=== PATIENT | male | born 1955 ===

== ENCOUNTER 2018-09-07 15:38 | Inpatient (IN) ==
[2018-09-07 16:29] LABS: Basophils % 0.3 % (0.0-0.8); Eosinophils # 0.2 10*3/uL (0.0-0.87); Eosinophils % 2.2 % (0.00-10.9); Hematocrit 22.1 VOL% (42.0-52.0); Immature Granulocytes % 0.5 %; Immature Granulocytes Absolute 0.05 #; Lymphocytes # 1.5 10*3/uL (1.4-4.0); Lymphocytes % 14.7 % (21.2-54.2); Mean Corpuscular Volume 99.1 FL (87-102); Mean Platelet Volume 8.9 FL (9.6-12.0); Monocytes % 8.4 % (1.7-12.7); Neutrophils % 73.9 % (38.7-73.9); Platelet Count 175 T/CUMM (130-400); Red Blood Count 2.23 MC/CUMM (3.8-5.5); Red Cell Distribution Width 19.3 % (9.3-17.3); White Blood Count 10.1 T/CUMM (4-12)
[2018-09-07 16:34] LABS: Hemoglobin 6.4 GM/DL (14.0-18.0)
[2018-09-07 17:06] LABS: Microcytosis 1+; Polychromasia 1+
[2018-09-07 17:07] LABS: Platelet Estimate Adequate
[2018-09-07] MEDS ORDERED: ACETAMINOPHEN 325 MG TABLET PO PRN (18:51)
[2018-09-07] MEDS ORDERED: DEXTROSE 10% 250 ML BAG IV PRN (18:56)
[2018-09-07] MEDS ORDERED: GLUCAGON 1 MG VIAL IM PRN (18:56)
[2018-09-07 19:23] LABS: % Iron Saturation 43.9 % (18-50); INR 1.1; PT Patient Result 11.4 SECS
[2018-09-07 19:35] LABS: Ferritin 2042.9 ng/ml (26-388)
[2018-09-07] MEDS: INSULIN REGULAR 100 UNIT/ML SUBCUT SCH (23:04)
[2018-09-07] MEDS: ATORVASTATIN 40 MG TABLET PO SCH (23:04)
[2018-09-07] MEDS: CARVEDILOL 3.125 MG TABLET PO SCH (23:21)
[2018-09-07] MEDS ORDERED: SODIUM CHLORIDE 0.9% 1,000 ML IV PRN (23:41)
[2018-09-08 05:28] LABS: Basophils % 0.4 % (0.0-0.8); Eosinophils # 0.2 10*3/uL (0.0-0.87); Eosinophils % 1.9 % (0.00-10.9); Hematocrit 20.9 VOL% (42.0-52.0); Immature Granulocytes % 0.4 %; Immature Granulocytes Absolute 0.04 #; Lymphocytes # 1.9 10*3/uL (1.4-4.0); Lymphocytes % 20.6 % (21.2-54.2); Mean Corpuscular HGB Conc 30.1 GM/DL (32-36); Mean Corpuscular Volume 97.2 FL (87-102); Mean Platelet Volume 9.4 FL (9.6-12.0); Monocytes % 9.6 % (1.7-12.7); Neutrophils % 67.1 % (38.7-73.9); Platelet Count 192 T/CUMM (130-400); Red Blood Count 2.15 MC/CUMM (3.8-5.5); Red Cell Distribution Width 19.1 % (9.3-17.3)
[2018-09-08 05:36] LABS: Hemoglobin 6.3 GM/DL (14.0-18.0)
[2018-09-08 05:58] LABS: Albumin 1.8 G/DL (3.4-5.0); Bilirubin,Total 1.1 MG/DL (0.2-1.0); Calcium 9.1 MG/DL (8.5-10.1); Osmolality,Calculated 283.3 MOS/KG (273-304); Risk Ratio 3.21; Total Protein 6.8 G/DL (6.4-8.3); VLDL CHOLESTEROL 16.2 MG/DL
[2018-09-08] MEDS: INSULIN REGULAR 100 UNIT/ML SUBCUT SCH ×4 (08:51→21:46)
[2018-09-08] MEDS: LEVOTHYROXINE 112 MCG TABLET PO SCH (09:09)
[2018-09-08] MEDS: AMIODARONE 200 MG TABLET PO SCH (09:10)
[2018-09-08] MEDS: PANTOPRAZOLE 40 MG TABLET PO SCH (09:10)
[2018-09-08] MEDS: CARVEDILOL 3.125 MG TABLET PO SCH ×2 (09:10→17:57)
[2018-09-08] MEDS: MULTIVITAMIN (BEROCCA) TABLET PO SCH (09:10)
[2018-09-08] MEDS: FERROUS SULFATE 300 MG/5 ML UDCUP PO SCH (21:48)
[2018-09-08] MEDS: ATORVASTATIN 40 MG TABLET PO SCH (21:48)
[2018-09-09 05:42] LABS: Basophils % 0.5 % (0.0-0.8); Eosinophils # 0.1 10*3/uL (0.0-0.87); Eosinophils % 1.3 % (0.00-10.9); Hematocrit 27.5 VOL% (42.0-52.0); Hemoglobin 8.5 GM/DL (14.0-18.0); Immature Granulocytes % 0.5 %; Immature Granulocytes Absolute 0.04 #; Lymphocytes # 1.6 10*3/uL (1.4-4.0); Lymphocytes % 19.3 % (21.2-54.2); Mean Corpuscular HGB Conc 30.9 GM/DL (32-36); Mean Corpuscular Volume 95.5 FL (87-102); Mean Platelet Volume 9.4 FL (9.6-12.0); Monocytes % 9.5 % (1.7-12.7); Neutrophils % 68.9 % (38.7-73.9); Platelet Count 174 T/CUMM (130-400); Red Blood Count 2.88 MC/CUMM (3.8-5.5); Red Cell Distribution Width 18.2 % (9.3-17.3); White Blood Count 8.4 T/CUMM (4-12)
[2018-09-09 06:17] LABS: Calcium 8.7 MG/DL (8.5-10.1); Osmolality,Calculated 276.5 MOS/KG (273-304)
[2018-09-09] MEDS: INSULIN REGULAR 100 UNIT/ML SUBCUT SCH ×4 (07:27→20:23)
[2018-09-09] MEDS: AMIODARONE 200 MG TABLET PO SCH (09:30)
[2018-09-09] MEDS: LEVOTHYROXINE 112 MCG TABLET PO SCH (09:30)
[2018-09-09] MEDS: MULTIVITAMIN (BEROCCA) TABLET PO SCH (09:30)
[2018-09-09] MEDS: PANTOPRAZOLE 40 MG TABLET PO SCH (09:30)
[2018-09-09] MEDS: CARVEDILOL 3.125 MG TABLET PO SCH ×2 (09:30→17:01)
[2018-09-09] MEDS: FERROUS SULFATE 300 MG/5 ML UDCUP PO SCH ×2 (09:30→20:23)
[2018-09-09] MEDS: ATORVASTATIN 40 MG TABLET PO SCH (20:23)
[2018-09-10] MEDS: INSULIN REGULAR 100 UNIT/ML SUBCUT SCH ×4 (09:45→21:11)
[2018-09-10] MEDS ORDERED: PROPOFOL 200 MG/20 ML VIAL IV ONE (10:10)
[2018-09-10] MEDS ORDERED: LIDOCAINE 2% 5 ML VIAL ONE (10:10)
[2018-09-10] MEDS: CARVEDILOL 3.125 MG TABLET PO SCH ×2 (12:35→17:33)
[2018-09-10] MEDS: LEVOTHYROXINE 112 MCG TABLET PO SCH (12:39)
[2018-09-10] MEDS: AMIODARONE 200 MG TABLET PO SCH (12:51)
[2018-09-10] MEDS: PANTOPRAZOLE 40 MG TABLET PO SCH (12:52)
[2018-09-10] MEDS: ERGOCALCIFEROL 50,000 UNIT CAPSULE PO SCH (12:52)
[2018-09-10] MEDS: MULTIVITAMIN (BEROCCA) TABLET PO SCH (12:52)
[2018-09-10] MEDS: FERROUS SULFATE 300 MG/5 ML UDCUP PO SCH ×2 (12:52→21:10)
[2018-09-10] MEDS: ATORVASTATIN 40 MG TABLET PO SCH (21:10)
[2018-09-11 05:08] LABS: Basophils % 0.4 % (0.0-0.8); Eosinophils # 0.2 10*3/uL (0.0-0.87); Eosinophils % 2.1 % (0.00-10.9); Hematocrit 27.9 VOL% (42.0-52.0); Hemoglobin 8.7 GM/DL (14.0-18.0); Immature Granulocytes % 0.4 %; Immature Granulocytes Absolute 0.04 #; Lymphocytes # 1.6 10*3/uL (1.4-4.0); Lymphocytes % 16.6 % (21.2-54.2); Mean Corpuscular HGB Conc 31.2 GM/DL (32-36); Mean Corpuscular Volume 94.6 FL (87-102); Mean Platelet Volume 9.6 FL (9.6-12.0); Monocytes % 7.4 % (1.7-12.7); Neutrophils % 73.1 % (38.7-73.9); Platelet Count 164 T/CUMM (130-400); Red Blood Count 2.95 MC/CUMM (3.8-5.5); Red Cell Distribution Width 17.4 % (9.3-17.3); White Blood Count 9.4 T/CUMM (4-12)
[2018-09-11 05:28] LABS: Calcium 9.2 MG/DL (8.5-10.1); Osmolality,Calculated 282.5 MOS/KG (273-304)
[2018-09-11] MEDS ORDERED: EPOETIN ALFA 10,000 UNIT/1 ML VIAL IV PRN (07:37)
[2018-09-11] MEDS: INSULIN REGULAR 100 UNIT/ML SUBCUT SCH ×4 (08:26→21:44)
[2018-09-11] MEDS: AMIODARONE 200 MG TABLET PO SCH (13:27)
[2018-09-11] MEDS: CARVEDILOL 3.125 MG TABLET PO SCH ×2 (13:28→18:14)
[2018-09-11] MEDS: LEVOTHYROXINE 112 MCG TABLET PO SCH (13:38)
[2018-09-11] MEDS: PANTOPRAZOLE 40 MG TABLET PO SCH (14:01)
[2018-09-11] MEDS: MULTIVITAMIN (BEROCCA) TABLET PO SCH (14:01)
[2018-09-11] MEDS: FERROUS SULFATE 300 MG/5 ML UDCUP PO SCH ×2 (14:01→21:44)
[2018-09-11] MEDS: ATORVASTATIN 40 MG TABLET PO SCH (21:44)
[2018-09-12] MEDS: AMIODARONE 200 MG TABLET PO SCH (08:57)
[2018-09-12] MEDS: INSULIN REGULAR 100 UNIT/ML SUBCUT SCH ×4 (08:57→22:00)
[2018-09-12] MEDS: LEVOTHYROXINE 112 MCG TABLET PO SCH (08:57)
[2018-09-12] MEDS: PANTOPRAZOLE 40 MG TABLET PO SCH (08:58)
[2018-09-12] MEDS: FERROUS SULFATE 300 MG/5 ML UDCUP PO SCH ×2 (08:58→22:00)
[2018-09-12] MEDS: CARVEDILOL 3.125 MG TABLET PO SCH ×2 (08:58→16:44)
[2018-09-12] MEDS: MULTIVITAMIN (BEROCCA) TABLET PO SCH (08:58)
[2018-09-12] MEDS ORDERED: BISACODYL 5 MG TABLET PO ONE (12:00)
[2018-09-12] MEDS ORDERED: POLYETHYLENE GLYCOL POWDER 255 GM BOTTLE PO ONE (12:22)
[2018-09-12] MEDS: ZINC OXIDE 16% PASTE 57 GM TUBE TOP SCH ×2 (12:56→22:00)
[2018-09-12] MEDS: ATORVASTATIN 40 MG TABLET PO SCH (22:00)
[2018-09-13 04:55] LABS: INR 1.1; PT Patient Result 11.4 SECS
[2018-09-13] MEDS: INSULIN REGULAR 100 UNIT/ML SUBCUT SCH ×4 (07:30→21:12)
[2018-09-13 07:56] LABS: Calcium 8.8 MG/DL (8.5-10.1); Osmolality,Calculated 277.7 MOS/KG (273-304)
[2018-09-13] MEDS ORDERED: SODIUM CHLORIDE 0.9% 250 ML IV SCH (08:00)
[2018-09-13 08:36] LABS: Basophils % 0.4 % (0.0-0.8); Eosinophils # 0.2 10*3/uL (0.0-0.87); Eosinophils % 2.4 % (0.00-10.9); Hemoglobin 9.6 GM/DL (14.0-18.0); Immature Granulocytes % 0.4 %; Immature Granulocytes Absolute 0.04 #; Lymphocytes # 1.7 10*3/uL (1.4-4.0); Lymphocytes % 19.4 % (21.2-54.2); Mean Corpuscular Volume 96.4 FL (87-102); Mean Platelet Volume 9.1 FL (9.6-12.0); Monocytes % 7.8 % (1.7-12.7); Neutrophils % 69.6 % (38.7-73.9); Platelet Count 158 T/CUMM (130-400); Red Blood Count 3.32 MC/CUMM (3.8-5.5); Red Cell Distribution Width 17.2 % (9.3-17.3); White Blood Count 8.9 T/CUMM (4-12)
[2018-09-13] MEDS: AMIODARONE 200 MG TABLET PO SCH (08:42)
[2018-09-13] MEDS: CARVEDILOL 3.125 MG TABLET PO SCH ×2 (08:42→17:08)
[2018-09-13] MEDS: PANTOPRAZOLE 40 MG TABLET PO SCH (08:42)
[2018-09-13] MEDS: LEVOTHYROXINE 112 MCG TABLET PO SCH (08:42)
[2018-09-13] MEDS: FERROUS SULFATE 300 MG/5 ML UDCUP PO SCH ×2 (08:42→21:12)
[2018-09-13] MEDS: MULTIVITAMIN (BEROCCA) TABLET PO SCH (08:42)
[2018-09-13] MEDS: ZINC OXIDE 16% PASTE 57 GM TUBE TOP SCH ×2 (08:43→21:12)
[2018-09-13] MEDS ORDERED: POLYETHYLENE GLYCOL POWDER 255 GM BOTTLE PO ONE (10:02)
[2018-09-13] MEDS: ATORVASTATIN 40 MG TABLET PO SCH (21:12)
[2018-09-14] MEDS ORDERED: LIDOCAINE 2% 5 ML VIAL ONE (09:00)
[2018-09-14] MEDS ORDERED: ETOMIDATE 20 MG/10 ML VIAL IV ONE (09:00)
[2018-09-14] MEDS ORDERED: PROPOFOL 200 MG/20 ML VIAL IV ONE (09:00)
[2018-09-14] MEDS: LEVOTHYROXINE 112 MCG TABLET PO SCH (13:11)
[2018-09-14] MEDS: CARVEDILOL 3.125 MG TABLET PO SCH ×2 (13:11→17:06)
[2018-09-14] MEDS: MULTIVITAMIN (BEROCCA) TABLET PO SCH (13:11)
[2018-09-14] MEDS: PANTOPRAZOLE 40 MG TABLET PO SCH (13:11)
[2018-09-14] MEDS: FERROUS SULFATE 300 MG/5 ML UDCUP PO SCH ×2 (13:11→20:31)
[2018-09-14] MEDS: AMIODARONE 200 MG TABLET PO SCH (13:11)
[2018-09-14] MEDS: LACTATED RINGERS 1,000 ML IV SCH (13:12)
[2018-09-14] MEDS: ZINC OXIDE 16% PASTE 57 GM TUBE TOP SCH ×2 (13:12→20:34)
[2018-09-14] MEDS: INSULIN REGULAR 100 UNIT/ML SUBCUT SCH ×3 (13:12→20:31)
[2018-09-14] MEDS: ATORVASTATIN 40 MG TABLET PO SCH (20:31)
[2018-09-15] MEDS: LEVOTHYROXINE 112 MCG TABLET PO SCH ×2 (06:00→07:15)
[2018-09-15 06:34] LABS: Basophils # 0.1 10*3/uL (0.0-0.2); Basophils % 0.6 % (0.0-0.8); Eosinophils # 0.1 10*3/uL (0.0-0.87); Eosinophils % 1.1 % (0.00-10.9); Hematocrit 31.7 VOL% (42.0-52.0); Hemoglobin 9.5 GM/DL (14.0-18.0); Immature Granulocytes % 0.2 %; Immature Granulocytes Absolute 0.02 #; Lymphocytes # 1.7 10*3/uL (1.4-4.0); Lymphocytes % 20.6 % (21.2-54.2); Mean Corpuscular Volume 96.4 FL (87-102); Mean Platelet Volume 8.9 FL (9.6-12.0); Monocytes % 8.4 % (1.7-12.7); Neutrophils % 69.1 % (38.7-73.9); Platelet Count 176 T/CUMM (130-400); Red Blood Count 3.29 MC/CUMM (3.8-5.5); Red Cell Distribution Width 17.2 % (9.3-17.3); White Blood Count 8.1 T/CUMM (4-12)
[2018-09-15 07:02] LABS: Calcium 9.3 MG/DL (8.5-10.1); Osmolality,Calculated 281.3 MOS/KG (273-304)
[2018-09-15] MEDS: LACTATED RINGERS 1,000 ML IV SCH (07:15)
[2018-09-15] MEDS: MULTIVITAMIN (BEROCCA) TABLET PO SCH ×2 (08:00→13:23)
[2018-09-15] MEDS: AMIODARONE 200 MG TABLET PO SCH ×2 (08:00→13:23)
[2018-09-15] MEDS: INSULIN REGULAR 100 UNIT/ML SUBCUT SCH ×4 (08:16→20:26)
[2018-09-15] MEDS: ZINC OXIDE 16% PASTE 57 GM TUBE TOP SCH ×3 (10:08→20:26)
[2018-09-15] MEDS: PANTOPRAZOLE 40 MG TABLET PO SCH ×2 (10:11→13:24)
[2018-09-15] MEDS: CARVEDILOL 3.125 MG TABLET PO SCH ×2 (13:20→17:41)
[2018-09-15] MEDS: FERROUS SULFATE 300 MG/5 ML UDCUP PO SCH ×3 (13:23→20:26)
[2018-09-15] MEDS: ATORVASTATIN 40 MG TABLET PO SCH (20:26)
[2018-09-16] MEDS: LEVOTHYROXINE 112 MCG TABLET PO SCH (07:30)
[2018-09-16] MEDS: INSULIN REGULAR 100 UNIT/ML SUBCUT SCH ×4 (07:30→21:54)
[2018-09-16] MEDS: CARVEDILOL 3.125 MG TABLET PO SCH ×2 (10:00→16:45)
[2018-09-16] MEDS: ZINC OXIDE 16% PASTE 57 GM TUBE TOP SCH ×2 (10:00→21:54)
[2018-09-16] MEDS: PANTOPRAZOLE 40 MG TABLET PO SCH (10:00)
[2018-09-16] MEDS: MULTIVITAMIN (BEROCCA) TABLET PO SCH (10:00)
[2018-09-16] MEDS: AMIODARONE 200 MG TABLET PO SCH (10:00)
[2018-09-16] MEDS: FERROUS SULFATE 300 MG/5 ML UDCUP PO SCH ×2 (10:00→21:49)
[2018-09-16] MEDS: LACTATED RINGERS 1,000 ML IV SCH (12:36)
[2018-09-16] MEDS: ATORVASTATIN 40 MG TABLET PO SCH (21:49)
[2018-09-17 05:19] LABS: Basophils % 0.4 % (0.0-0.8); Eosinophils # 0.2 10*3/uL (0.0-0.87); Eosinophils % 1.6 % (0.00-10.9); Hematocrit 29.7 VOL% (42.0-52.0); Hemoglobin 9.2 GM/DL (14.0-18.0); Immature Granulocytes % 0.2 %; Immature Granulocytes Absolute 0.02 #; Lymphocytes # 2.4 10*3/uL (1.4-4.0); Lymphocytes % 25.6 % (21.2-54.2); Mean Corpuscular Volume 95.5 FL (87-102); Mean Platelet Volume 9.7 FL (9.6-12.0); Monocytes % 8.4 % (1.7-12.7); Neutrophils % 63.8 % (38.7-73.9); Platelet Count 150 T/CUMM (130-400); Red Blood Count 3.11 MC/CUMM (3.8-5.5); Red Cell Distribution Width 17.2 % (9.3-17.3); White Blood Count 9.4 T/CUMM (4-12)
[2018-09-17 05:42] LABS: Calcium 9.2 MG/DL (8.5-10.1); Osmolality,Calculated 279.7 MOS/KG (273-304)
[2018-09-17] MEDS: INSULIN REGULAR 100 UNIT/ML SUBCUT SCH ×2 (08:08→13:59)
[2018-09-17] MEDS: FERROUS SULFATE 300 MG/5 ML UDCUP PO SCH (09:05)
[2018-09-17] MEDS: LEVOTHYROXINE 112 MCG TABLET PO SCH (09:05)
[2018-09-17] MEDS: AMIODARONE 200 MG TABLET PO SCH (09:06)
[2018-09-17] MEDS: MULTIVITAMIN (BEROCCA) TABLET PO SCH (09:06)
[2018-09-17] MEDS: ERGOCALCIFEROL 50,000 UNIT CAPSULE PO SCH (09:06)
[2018-09-17] MEDS: PANTOPRAZOLE 40 MG TABLET PO SCH (09:06)
[2018-09-17] MEDS: ZINC OXIDE 16% PASTE 57 GM TUBE TOP SCH (09:06)
[2018-09-17] MEDS: CARVEDILOL 3.125 MG TABLET PO SCH (09:06)
[2018-09-17 11:30] VITALS: BP 143/48
== END 2018-09-17 15:26 | DRG 811 ==
LOC: EDBD → EDUNIT# → N.ED 15:38 → N.5E 18:50
PROVIDERS: ADMIT Internal Medicine; ATTEND Internal Medicine

== ENCOUNTER 2018-10-26 06:46 | Inpatient (IN) ==
[~2018-10-26 06:46] MED LIST: ceFAZolin 2,000 MG in PREMIX 1 EACH IV ONE
[2018-10-26] MEDS ORDERED: SODIUM CHLORIDE 0.9% 250 ML IV SCH (07:00)
[2018-10-26 07:09] LABS: Basophils # 0.1 10*3/uL (0.0-0.2); Basophils % 0.7 % (0.0-0.8); Eosinophils # 0.2 10*3/uL (0.0-0.87); Eosinophils % 1.6 % (0.00-10.9); Hematocrit 29.6 VOL% (42.0-52.0); Hemoglobin 8.9 GM/DL (14.0-18.0); Immature Granulocytes % 0.4 %; Immature Granulocytes Absolute 0.04 #; Lymphocytes # 1.9 10*3/uL (1.4-4.0); Lymphocytes % 16.6 % (21.2-54.2); Mean Corpuscular HGB Conc 30.1 GM/DL (32-36); Mean Corpuscular Volume 96.7 FL (87-102); Mean Platelet Volume 9.1 FL (9.6-12.0); Monocytes % 9.7 % (1.7-12.7); Platelet Count 209 T/CUMM (130-400); Red Blood Count 3.06 MC/CUMM (3.8-5.5); Red Cell Distribution Width 17.8 % (9.3-17.3); White Blood Count 11.3 T/CUMM (4-12)
[2018-10-26 07:27] LABS: Calcium 9.2 MG/DL (8.5-10.1); Osmolality,Calculated 276.5 MOS/KG (273-304)
[2018-10-26] MEDS ORDERED: PROPOFOL 200 MG/20 ML VIAL IV ONE (11:53)
[2018-10-26] MEDS ORDERED: fentaNYL 100 MCG/2 ML VIAL ONE (11:54)
[2018-10-26] MEDS ORDERED: SEVOFLURANE 1 UNIT/15 MINUTE INH ONE (11:54)
[2018-10-26] MEDS ORDERED: ePHEDrine 50 MG/ML AMP ONE (11:54)
[2018-10-26] MEDS ORDERED: SODIUM CHLORIDE 0.9% 250 ML IV ONE (11:55)
[2018-10-26] MEDS ORDERED: PHENYLEPHRINE 1 MG/10 ML SYRINGE IV ONE (11:55)
[2018-10-26] MEDS ORDERED: PHENYLEPHRINE 10 MG/1 ML VIAL IV ONE (11:55)
[2018-10-26] MEDS ORDERED: GLYCOPYRROLATE 0.4 MG/2 ML VIAL ONE (11:55)
[2018-10-26] MEDS ORDERED: ETOMIDATE 40 MG/20 ML VIAL IV ONE (11:55)
[2018-10-26] MEDS ORDERED: ACETAMINOPHEN 325 MG TABLET PO PRN (13:48)
[2018-10-26] MEDS ORDERED: HYDROmorphone 2 MG/1 ML VIAL IV PRN ×2 (13:48)
[2018-10-26] MEDS ORDERED: ONDANSETRON 4 MG/2 ML VIAL IV PRN (13:48)
[2018-10-26] MEDS ORDERED: KETOROLAC 10 MG TABLET PO PRN (13:48)
[2018-10-26] MEDS ORDERED: ALBUTEROL/IPRATROPIUM 3 ML NEB RESP TX PRN (13:48)
[2018-10-26] MEDS ORDERED: BISACODYL 5 MG TABLET PO PRN (13:48)
[2018-10-26] MEDS ORDERED: WHITE PETROLATUM 30 GM TUBE TOP PRN (14:00)
[2018-10-26] MEDS: PIPERACILLIN/TAZOBACTAM 3,375 MG in SODIUM CHLORIDE 0.9% 100 ML IV SCH ×2 (14:45→21:34)
[2018-10-26] MEDS: LACTATED RINGERS 1,000 ML IV SCH (14:45)
[2018-10-26] MEDS: FERROUS SULFATE 300 MG/5 ML UDCUP PO SCH (21:34)
[2018-10-26] MEDS: MENTHOL/ZINC OXIDE OINT 71 GM JAR TOP SCH (21:34)
[2018-10-26] MEDS: ATORVASTATIN 40 MG TABLET PO SCH (21:34)
[2018-10-26] MEDS: CARVEDILOL 3.125 MG TABLET PO SCH ×2 (21:34→21:45)
[2018-10-27] MEDS: LACTATED RINGERS 1,000 ML IV SCH ×2 (03:20→20:51)
[2018-10-27 05:04] LABS: Basophils # 0.1 10*3/uL (0.0-0.2); Basophils % 0.7 % (0.0-0.8); Eosinophils # 0.4 10*3/uL (0.0-0.87); Eosinophils % 3.2 % (0.00-10.9); Hematocrit 27.1 VOL% (42.0-52.0); Hemoglobin 8.3 GM/DL (14.0-18.0); Immature Granulocytes % 0.4 %; Immature Granulocytes Absolute 0.04 #; Lymphocytes # 1.2 10*3/uL (1.4-4.0); Lymphocytes % 10.8 % (21.2-54.2); Mean Corpuscular HGB Conc 30.6 GM/DL (32-36); Mean Corpuscular Volume 95.8 FL (87-102); Mean Platelet Volume 9.2 FL (9.6-12.0); Monocytes % 10.4 % (1.7-12.7); Neutrophils % 74.5 % (38.7-73.9); Platelet Count 197 T/CUMM (130-400); Red Blood Count 2.83 MC/CUMM (3.8-5.5); Red Cell Distribution Width 17.8 % (9.3-17.3); White Blood Count 11.1 T/CUMM (4-12)
[2018-10-27 05:41] LABS: Calcium 8.9 MG/DL (8.5-10.1); Osmolality,Calculated 281.4 MOS/KG (273-304)
[2018-10-27] MEDS: PIPERACILLIN/TAZOBACTAM 3,375 MG in SODIUM CHLORIDE 0.9% 100 ML IV SCH ×2 (06:04→18:00)
[2018-10-27] MEDS: CARVEDILOL 3.125 MG TABLET PO SCH ×2 (08:44→20:49)
[2018-10-27] MEDS: LEVOTHYROXINE 112 MCG TABLET PO SCH (08:44)
[2018-10-27] MEDS: FERROUS SULFATE 300 MG/5 ML UDCUP PO SCH ×2 (08:45→20:49)
[2018-10-27] MEDS: MULTIVITAMIN (BEROCCA) TABLET PO SCH (08:45)
[2018-10-27] MEDS: PANTOPRAZOLE 40 MG TABLET PO SCH (08:45)
[2018-10-27] MEDS: AMIODARONE 200 MG TABLET PO SCH (08:45)
[2018-10-27] MEDS: MENTHOL/ZINC OXIDE OINT 71 GM JAR TOP SCH ×2 (08:47→20:51)
[2018-10-27] MEDS: COLLAGENASE OINT 30 GM TUBE TOP SCH (13:51)
[2018-10-27] MEDS: ATORVASTATIN 40 MG TABLET PO SCH (20:49)
[2018-10-28] MEDS: PIPERACILLIN/TAZOBACTAM 3,375 MG in SODIUM CHLORIDE 0.9% 100 ML IV SCH (05:46)
[2018-10-28] MEDS: MULTIVITAMIN (BEROCCA) TABLET PO SCH (08:27)
[2018-10-28] MEDS: LEVOTHYROXINE 112 MCG TABLET PO SCH (08:27)
[2018-10-28] MEDS: AMIODARONE 200 MG TABLET PO SCH (08:27)
[2018-10-28] MEDS: CARVEDILOL 3.125 MG TABLET PO SCH (08:28)
[2018-10-28] MEDS: PANTOPRAZOLE 40 MG TABLET PO SCH (08:28)
[2018-10-28] MEDS: FERROUS SULFATE 300 MG/5 ML UDCUP PO SCH (08:29)
[2018-10-28] MEDS: COLLAGENASE OINT 30 GM TUBE TOP SCH (10:00)
[2018-10-28] MEDS: MENTHOL/ZINC OXIDE OINT 71 GM JAR TOP SCH (10:00)
[2018-10-28] MEDS: LACTATED RINGERS 1,000 ML IV SCH (10:43)
[2018-10-28 12:05] VITALS: BP 128/44
[2018-10-29] MEDS ORDERED: ERGOCALCIFEROL 50,000 UNIT CAPSULE PO SCH (13:53)
== END 2018-10-28 15:30 | DRG 617 ==
LOC: N.SDSINP 06:46 → N.3E 12:21
PROVIDERS: ADMIT Surgery; ATTEND Surgery

== ENCOUNTER 2018-12-07 05:45 | Inpatient (IN) ==
[2018-12-07] MEDS ORDERED: FAMOTIDINE 20 MG TABLET PO ONE (06:00)
[2018-12-07 06:23] LABS: Basophils % 0.5 % (0.0-0.8); Eosinophils # 0.1 10*3/uL (0.0-0.87); Eosinophils % 1.4 % (0.00-10.9); Hematocrit 30.5 VOL% (42.0-52.0); Hemoglobin 9.1 GM/DL (14.0-18.0); Immature Granulocytes % 0.3 %; Immature Granulocytes Absolute 0.02 #; Lymphocytes # 1.7 10*3/uL (1.4-4.0); Lymphocytes % 21.2 % (21.2-54.2); Mean Corpuscular HGB Conc 29.8 GM/DL (32-36); Mean Corpuscular Volume 94.4 FL (87-102); Mean Platelet Volume 9.7 FL (9.6-12.0); Monocytes % 8.2 % (1.7-12.7); Neutrophils % 68.4 % (38.7-73.9); Platelet Count 171 T/CUMM (130-400); Red Blood Count 3.23 MC/CUMM (3.8-5.5); Red Cell Distribution Width 17.8 % (9.3-17.3); White Blood Count 7.8 T/CUMM (4-12)
[2018-12-07 06:41] LABS: Osmolality,Calculated 274.8 MOS/KG (273-304)
[2018-12-07] MEDS ORDERED: SODIUM CHLORIDE 0.9% 250 ML IV SCH (07:00)
[2018-12-07] MEDS ORDERED: FAMOTIDINE 20 MG TABLET ONE (07:30)
[2018-12-07] MEDS ORDERED: fentaNYL 100 MCG/2 ML VIAL ONE (07:54)
[2018-12-07] MEDS ORDERED: EPINEPHrine 1 MG/ML VIAL ONE (07:54)
[2018-12-07] MEDS ORDERED: MIDAZOLAM 2 MG/2 ML VIAL ONE (07:55)
[2018-12-07] MEDS ORDERED: BUPIVACAINE 0.5% 50 ML VIAL ONE ×2 (07:55→08:05)
[2018-12-07] MEDS ORDERED: DEXAMETHASONE 4 MG/1 ML VIAL ONE (07:55)
[2018-12-07] MEDS ORDERED: LIDOCAINE 1% 20 ML VIAL ONE (08:05)
[2018-12-07] MEDS ORDERED: ceFAZolin 1,000 MG in SYRINGE 1 EACH IV ONE (08:32)
[2018-12-07] MEDS ORDERED: KETOROLAC 15 MG/1 ML VIAL IV PRN (08:34)
[2018-12-07] MEDS ORDERED: ONDANSETRON 4 MG/2 ML VIAL IV PRN ×2 (08:34→10:57)
[2018-12-07] MEDS ORDERED: BISACODYL 5 MG TABLET PO PRN (08:34)
[2018-12-07] MEDS ORDERED: HYDROmorphone 2 MG/1 ML VIAL IV PRN ×2 (08:34)
[2018-12-07] MEDS ORDERED: ALBUTEROL/IPRATROPIUM 3 ML NEB RESP TX PRN (08:34)
[2018-12-07] MEDS ORDERED: ACETAMINOPHEN 325 MG TABLET PO PRN (08:34)
[2018-12-07] MEDS ORDERED: LACTATED RINGERS 1,000 ML IV SCH (09:00)
[2018-12-07] MEDS ORDERED: ceFAZolin 1,000 MG VIAL ONE (09:54)
[2018-12-07] MEDS ORDERED: EPINEPHrine 1 MG/10 ML SYRINGE ONE (11:05)
[2018-12-07] MEDS ORDERED: PROPOFOL 200 MG/20 ML VIAL IV ONE (11:05)
[2018-12-07] MEDS ORDERED: LIDOCAINE 2% 5 ML VIAL ONE (11:05)
[2018-12-07] MEDS ORDERED: PHENYLEPHRINE DRIP 20 MG/250 ML PREMIX IV ONE (11:05)
[2018-12-07] MEDS ORDERED: SEVOFLURANE 1 UNIT/15 MINUTE INH ONE (11:06)
[2018-12-07] MEDS ORDERED: SODIUM CHLORIDE 0.9% 250 ML IV ONE (11:06)
[2018-12-07] MEDS ORDERED: SODIUM BICARBONATE 50 MEQ/50 ML VIAL IV ONE (11:06)
[2018-12-07] MEDS ORDERED: ALBUMIN 5% 12.5 GM/250 ML VIAL IV ONE (11:06)
[2018-12-07] MEDS ORDERED: ePHEDrine 50 MG/ML AMP ONE (11:06)
[2018-12-07] MEDS: MULTIVITAMIN (BEROCCA) TABLET PO SCH (12:18)
[2018-12-07] MEDS: MENTHOL/ZINC OXIDE OINT 71 GM JAR TOP SCH ×2 (12:19→21:16)
[2018-12-07] MEDS: FERROUS SULFATE 300 MG/5 ML UDCUP PO SCH ×2 (12:19→21:14)
[2018-12-07] MEDS: carvediloL 3.125 MG TABLET PO SCH ×2 (12:19→21:14)
[2018-12-07] MEDS: PANTOPRAZOLE 40 MG TABLET PO SCH (12:19)
[2018-12-07] MEDS: AMIODARONE 200 MG TABLET PO SCH (12:19)
[2018-12-07] MEDS: LEVOTHYROXINE 112 MCG TABLET PO SCH (12:19)
[2018-12-07] MEDS ORDERED: GLUCAGON 1 MG VIAL IM PRN (13:38)
[2018-12-07] MEDS ORDERED: DEXTROSE 50% 25 GM/50 ML VIAL IV PRN (13:38)
[2018-12-07] MEDS: ceFAZolin 2,000 MG in PREMIX 1 EACH IV SCH (16:48)
[2018-12-07] MEDS: INSULIN REGULAR 100 UNIT/ML SUBCUT SCH ×2 (16:51→21:14)
[2018-12-07] MEDS: ATORVASTATIN 40 MG TABLET PO SCH (21:14)
[2018-12-08] MEDS: ceFAZolin 2,000 MG in PREMIX 1 EACH IV SCH (00:15)
[2018-12-08 05:08] LABS: Basophils % 0.2 % (0.0-0.8); Eosinophils % 0.2 % (0.00-10.9); Hematocrit 28.4 VOL% (42.0-52.0); Hemoglobin 8.7 GM/DL (14.0-18.0); Immature Granulocytes % 0.2 %; Immature Granulocytes Absolute 0.02 #; Lymphocytes # 1.5 10*3/uL (1.4-4.0); Lymphocytes % 16.7 % (21.2-54.2); Mean Corpuscular HGB Conc 30.6 GM/DL (32-36); Mean Corpuscular Volume 92.5 FL (87-102); Mean Platelet Volume 10.1 FL (9.6-12.0); Monocytes % 8.1 % (1.7-12.7); Neutrophils % 74.6 % (38.7-73.9); Platelet Count 176 T/CUMM (130-400); Red Blood Count 3.07 MC/CUMM (3.8-5.5); Red Cell Distribution Width 17.8 % (9.3-17.3)
[2018-12-08] MEDS: INSULIN REGULAR 100 UNIT/ML SUBCUT SCH ×4 (07:30→23:02)
[2018-12-08] MEDS: MENTHOL/ZINC OXIDE OINT 71 GM JAR TOP SCH ×2 (09:00→22:36)
[2018-12-08] MEDS: carvediloL 3.125 MG TABLET PO SCH ×2 (09:00→22:53)
[2018-12-08 09:12] LABS: Calcium 9.7 MG/DL (8.5-10.1); Osmolality,Calculated 285.1 MOS/KG (273-304)
[2018-12-08] MEDS: PANTOPRAZOLE 40 MG TABLET PO SCH (09:48)
[2018-12-08] MEDS: LEVOTHYROXINE 112 MCG TABLET PO SCH (09:48)
[2018-12-08] MEDS: FERROUS SULFATE 300 MG/5 ML UDCUP PO SCH ×3 (09:48→22:35)
[2018-12-08] MEDS: MULTIVITAMIN (BEROCCA) TABLET PO SCH (09:49)
[2018-12-08] MEDS: AMIODARONE 200 MG TABLET PO SCH (09:49)
[2018-12-08 18:32] LABS: Hepatitis B Surface Ag Quant 0.16 Index; Hepatitis B Surface Ag Result Negative (Negative)
[2018-12-08] MEDS: ATORVASTATIN 40 MG TABLET PO SCH (22:35)
[2018-12-09] MEDS: INSULIN REGULAR 100 UNIT/ML SUBCUT SCH ×4 (08:14→20:48)
[2018-12-09] MEDS: FERROUS SULFATE 300 MG/5 ML UDCUP PO SCH (09:00)
[2018-12-09] MEDS: LEVOTHYROXINE 112 MCG TABLET PO SCH (10:07)
[2018-12-09] MEDS: MULTIVITAMIN (BEROCCA) TABLET PO SCH (10:07)
[2018-12-09] MEDS: AMIODARONE 200 MG TABLET PO SCH (10:07)
[2018-12-09] MEDS: PANTOPRAZOLE 40 MG TABLET PO SCH (10:07)
[2018-12-09] MEDS: carvediloL 3.125 MG TABLET PO SCH ×2 (10:07→22:19)
[2018-12-09] MEDS: MENTHOL/ZINC OXIDE OINT 71 GM JAR TOP SCH (10:32)
[2018-12-09] MEDS: ATORVASTATIN 40 MG TABLET PO SCH (20:42)
[2018-12-09] MEDS: FERROUS SULFATE 325 MG TABLET PO SCH (20:42)
[2018-12-10] MEDS: MENTHOL/ZINC OXIDE OINT 71 GM JAR TOP SCH ×2 (05:18→10:58)
[2018-12-10] MEDS: INSULIN REGULAR 100 UNIT/ML SUBCUT SCH ×2 (07:43→12:48)
[2018-12-10] MEDS ORDERED: ERGOCALCIFEROL 50,000 UNIT CAPSULE PO SCH (08:44)
[2018-12-10] MEDS: carvediloL 3.125 MG TABLET PO SCH (10:59)
[2018-12-10] MEDS: AMIODARONE 200 MG TABLET PO SCH (10:59)
[2018-12-10 11:50] VITALS: BP 133/40
[2018-12-10] MEDS: FERROUS SULFATE 325 MG TABLET PO SCH (12:12)
[2018-12-10] MEDS: MULTIVITAMIN (BEROCCA) TABLET PO SCH (12:12)
[2018-12-10] MEDS: PANTOPRAZOLE 40 MG TABLET PO SCH (12:12)
[2018-12-10] MEDS: LEVOTHYROXINE 112 MCG TABLET PO SCH (12:12)
== END 2018-12-10 14:52 | DRG 239 ==
LOC: N.SDSINP 05:45 → N.ICU 11:12 → N.3E 18:34
PROVIDERS: ADMIT Surgery; ATTEND Surgery